=== PATIENT | female | born 1995 | race Caucasian/White ===

== ENCOUNTER 2016-08-17 09:56 | Emergency (ER) | payer SELFPAY ==
[~2016-08-17] VITALS: Ht 162.6 cm; Wt 107.0 kg
[~2016-08-17 09:56] MED LIST: Z.0.BCPILL PO
[2016-08-17 09:59] VITALS: BP 160/104; PULSE 108; RESP 16; TEMP 99.4; O2SAT 98
[2016-08-17] MEDS ORDERED: BIRTH CONTROL PILLS (10:14)
--- NOTE | 2016-08-17 10:31 | PD ---
HPI Chief Complaint: Musculoskeletal Complaint Time Seen by Provider: 10:09 Travel History International Travel<30 days: No Contact w/Intl Traveler<30days: No Traveled to known affect area: No History of Present Illness HPI Patient is a 20 year old female who presents to ER with c/o of right sided heal pain for the past 4 days. Patient denies any injury/fall/trauma to her heal. Reports "i feel a lump in my heal." Reports that she tried to take motrin with no relief of symptoms. Patient with no other c/o at this time. PFSH Past Medical History Hypertension: Yes Reproductive: Yes (STATES SHE IS SEXUALLY ACTIVE) Immunizations Current: Yes ?: Not LMP: ON CONTROL- SPOTTING 1 WEEK AGO Ovarian Cysts: Yes Social History Alcohol Use: No Tobacco Use: No Substance Use: No Allergies-Medications (Allergen,Severity, Reaction): Coded Allergies: No Known Allergies (Verified , 08/17/16) Reported Meds & Prescriptions Reported Meds & Active Scripts Active Reported [ Control Pills] Review of Systems General / Constitutional: No: Fever Eyes: No: Visual changes HENT: No: Headaches Cardiovascular: No: Chest Pain or Discomfort Respiratory: No: Shortness of Breath Gastrointestinal: No: Abdominal Pain Genitourinary: No: Dysuria Musculoskeletal: Positive: Pain (right sided heal pain) Skin: No Rash Neurologic: No: Weakness Psychiatric: No: Depression Endocrine: No: Polydipsia Hematologic/Lymphatic: No: Easy Bruising Physical Exam Narrative GENERAL: Well-nourished, well-developed patient. SKIN: Focused skin assessment warm/dry. HEAD: Normocephalic. EYES: No scleral icterus. No injection or drainage. NECK: Supple, trachea midline. No JVD or lymphadenopathy. CARDIOVASCULAR: Regular rate and rhythm without murmurs, gallops, or rubs. RESPIRATORY: Breath sounds equal bilaterally. No accessory muscle use. GASTROINTESTINAL: Abdomen soft, non-tender, nondistended. MUSCULOSKELETAL: No cyanosis, or edema. patient with point tenderness to right heal - no signs of infection/abrasions/ edema or erythema, pulses intact, neurovascularly intact, patient with normal range of motion to right knee, right ankle, Left lower extremity: normal exam BACK: Nontender without obvious deformity. No CVA tenderness. Data Data Last Documented VS Vital Signs Date Time Temp Pulse Resp B/P Pulse Ox O2 Delivery O2 Flow Rate FiO2 08/17/16 09:59 99.4 108 16 160/104 98 Orders Foot, Heel Only ([id number]) (08/17/16 ) Ibuprofen (Motrin) (08/17/16 10:45) MDM Medical Decision Making Medical Screen Exam Complete: Yes Emergency Medical Condition: Yes Interpretation(s) Vital Signs Date Time Temp Pulse Resp B/P Pulse Ox O2 Delivery O2 Flow Rate FiO2 08/17/16 09:59 99.4 108 16 160/104 98 Differential Diagnosis heal spur, heal fracture, plantar fasciitis Narrative Course Patient is a 20-year-old female who presents to emergency room with complaints of right-sided heel pain is been ongoing for the past 4 days. Patient denies any trauma to her heel, reports that she does remember having what socks at work 2 days ago. There is no obvious injuries, edema, or infection to her right heel. There is no open skin or bruising on exam. X-ray of the heel ordered. 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
[2016-08-17] MEDS ORDERED: IBUPROFEN 600 MG TAB PO ONE (10:45)
--- NOTE | 2016-08-17 10:48 | RADHPO ---
EXAM DATE/TIME: 08/17/2016 10:18 [facility] COMPARISON: No previous studies available for comparison. INDICATIONS : Patient states no known injury. Pain in her heel for four days. Patient states it feels like there is a lump in her heel. MEDICAL HISTORY : None. SURGICAL HISTORY : None. ENCOUNTER: Initial ACUITY: 4 - 6 days PAIN SCORE: 4/10 LOCATION: Right Heel. FINDINGS: Two view examination of the right heel demonstrates the trabecula to be intact with no evidence of fr acture. There is a normal calcaneal angle. The soft tissues are of normal thickness. CONCLUSION: Unremarkable exam. Jason Wheatley MD on August 17, 2016 at 10:45 Board Certified Radiologist. This report was verified electronically.
[2016-08-17] MEDS ORDERED: IBUP-232 PO (10:56)
== END 2016-08-17 11:06 | disposition home or self-care (01) ==
LOC: PHEFT 09:56
DX: M79.671 Pain in right foot (principal); I10 Essential (primary) hypertension; Z79.3 Long term (current) use of hormonal contraceptives
CPT/HCPCS: 73650; 99283

== ENCOUNTER 2016-10-13 13:43 | Emergency (ER) | payer SELFPAY ==
[~2016-10-13] VITALS: Ht 162.6 cm; Wt 107.5 kg
[~2016-10-13 13:43] MED LIST changes: +BIRTH CONTROL PILLS; +IBUP-232 PO; -Z.0.BCPILL PO
[2016-10-13 13:47] VITALS: BP 168/92; PULSE 96; RESP 16; TEMP 98.8; O2SAT 98
[2016-10-13] MEDS ORDERED: MEDR4PAK PO (14:23)
[2016-10-13] MEDS ORDERED: AMOX875T PO (14:23)
--- NOTE | 2016-10-13 14:26 | PD ---
HPI Chief Complaint: ENT Complaint Time Seen by Provider: 14:23 Travel History International Travel<30 days: No Contact w/Intl Traveler<30days: No Traveled to known affect area: No History of Present Illness HPI 21-year-old female that presents to the ED for evaluation of cold-like symptoms. She's had this for about 3 days now. Congestion, ear pain as well as sore throat. Has been taking OTC medications with minimal relief. No sick contacts. No recent travel. No history of asthma. No shortness of breath or chest pain. Cough is productive. Fevers per patient. Cough is productive. Congestion is significant. Per patient pain on the throat is 6 out of 10. Able to drink and eat. PFSH Past Medical History Medical History: Denies Significant Hx Cardiovascular Problems: Yes (HTN) Hypertension: Yes Reproductive: Yes (STATES SHE IS SEXUALLY ACTIVE) Immunizations Current: Yes Influenza Vaccination: No ?: Not LMP: 3 WEEK AGO. Ovarian Cysts: Yes Past Surgical History Surgical History: No Previous Surgery Social History Alcohol Use: No Tobacco Use: No Substance Use: No Allergies-Medications (Allergen,Severity, Reaction): Coded Allergies: No Known Allergies (Verified , 10/13/16) Reported Meds & Prescriptions Reported Meds & Active Scripts Active No Active Prescriptions or Reported Medications Review of Systems Except as stated in HPI: all other systems reviewed are Neg Physical Exam Narrative GENERAL: Well-nourished, well-developed patient in no apparent distress. SKIN: Warm and dry. HEAD: Atraumatic. Normocephalic. EYES: Pupils equal and round reactive to light and accommodation. No scleral icterus. No injection or drainage. ENT: No nasal bleeding or discharge. Mucous membranes pink and moist. TMs are clear with no sign of infection or perforation. No mastoid tenderness. Ear canals are intact bilaterally. No lymphadenopathy. Nostril mucosa is red and moist with clear mucus noted. No sinus tenderness to palpation noted. Tonsils are not enlarged or swollen. No ulvua Deviation. Tongue is midline. NECK: Trachea midline. No JVD. No meningeal signs noted CARDIOVASCULAR: Regular rate and rhythm. RESPIRATORY: No accessory muscle use. Clear to auscultation. Breath sounds equal bilaterally. GASTROINTESTINAL: Abdomen soft, non-tender, nondistended. Hepatic and splenic margins not palpable. MUSCULOSKELETAL: Extremities without clubbing, cyanosis, or edema. No obvious deformities. NEUROLOGICAL: Awake and alert. No obvious cranial nerve deficits. Motor grossly within normal limits. Five out of 5 muscle strength in the arms and legs. Normal speech. PSYCHIATRIC: Appropriate mood and affect; insight and judgment normal. Data Data Last Documented VS Vital Signs Date Time Temp Pulse Resp B/P Pulse Ox O2 Delivery O2 Flow Rate FiO2 10/13/16 13:47 98.8 96 16 168/92 98 MDM Medical Decision Making Medical Screen Exam Complete: Yes Emergency Medical Condition: Yes Medical Record Reviewed: Yes Differential Diagnosis Sinusitis versus pharyngitis versus strep throat versus otitis media versus otitis externa Narrative Course 21-year-old female that presents to the ED for evaluation of cold-like symptoms. Patient was properly examined and was found to have signs and symptoms consistent appears to be rhinosinusitis with pharyngitis. We'll treat with amoxicillin and Medrol Dosepak. Told to follow up with PCP. See ED for worsening symptoms. Take OTC medicines as needed. Diagnosis Primary Impression: Acute rhinosinusitis Additional Impression: Pharyngitis Qualified Code: J02.9 - Pharyngitis, unspecified etiology Patient Instructions: General Instructions Departure Forms: Tests/Procedures, Work Release Enter return to work date: Oct 16, 2016 Additional Instructions: Motrin and Tylenol for pain and fever. You can use [id number] antihistamine as well as well as Mucinex as needed for runny nose and congestion. Cough drops for cough as needed. Drink plenty of fluids. Follow-up with PCP. See ED for worsening symptoms. Med/Other Pt SpecificInfo: Prescription(s) given Scripts Amoxicillin 875 Mg [id number] Mg PO BID 10 Days Prov:Nolberto Pichardo MD 10/13/16 Methylprednisolone Dosepak (Medrol Dosepak)4 Mg Dspk4 Mg PO DIRECTED #1 DSPK Ref 0 Per Pharmacist direction Prov:Nolberto Pichardo MD 10/13/16 Disposition: 01 DISCHARGE HOME Condition: Varun Fermin Oct 13, 2016 14:26
== END 2016-10-13 14:33 | disposition home or self-care (01) ==
LOC: PHED 13:43 → PHEFT 14:33
DX: J01.90 Acute sinusitis, unspecified (principal); J02.9 Acute pharyngitis, unspecified
CPT/HCPCS: 99284